=== PATIENT | female | born 1980 | race Caucasian/White ===

== ENCOUNTER 2016-11-23 10:50 | Emergency (ER) | payer OTHER | END 2016-11-23 13:31 | disposition home or self-care (01) | LOC: ER 10:50 | DX: I87.2 Venous insufficiency (chronic) (peripheral) (principal); I83.90 Asymptomatic varicose veins of unspecified lower extremity; Z90.710 Acquired absence of both cervix and uterus; M79.89 Other specified soft tissue disorders; R20.0 Anesthesia of skin; F17.210 Nicotine dependence, cigarettes, uncomplicated; H53.9 Unspecified visual disturbance; Z91.013 Allergy to seafood | CPT/HCPCS: 93970; 99283-25 ==